=== PATIENT | male | born 1990 | race Hispanic/Latino ===

== ENCOUNTER 2017-03-10 20:37 | Emergency (ER) | payer OTHER ==
[2017-03-10 20:59] VITALS: TEMP 98
[2017-03-10] MEDS ORDERED: Sodium Chloride 0.9% 1,000 ML IV STA (22:18)
[2017-03-10] MEDS ORDERED: Multivitamin (MVI) 10 ML, Thiamine 100 MG, Folic Acid 1 MG in Sodium Chloride 0.9% 1,00... IV ONE (22:18)
--- NOTE | 2017-03-10 22:18 | ED PDOC ---
HPI: Psych/Substance Abuse Time Seen by Provider: 03/10/17 21:41 Chief Complaint (Nursing): Psychiatric Evaluation Chief Complaint (Provider): etoh, depressed History Per: Patient Onset/Duration Of Symptoms: Days Additional History Per: Patient Additional Complaint(s): 27 y/o male history of ETOH abuse presents for crisis eval. Patient states he has been binge drinking x 2 weeks, and that he "doesn't want to do it anymore". PAtient crying, states he has thoughts of hurting himself, but no specific plan. Denies homicidal ideations, drug use, acute medical complaints. Past Medical History Reviewed: Historical Data, Nursing Documentation, Vital Signs Vital Signs: Last Vital Signs Temp 98 F 03/10/17 20:56 Pulse 107 H 03/10/17 20:56 Resp 18 03/10/17 20:56 BP 139/90 03/10/17 20:56 Pulse Ox 98 03/10/17 20:56 - Medical History PMH: No Chronic Diseases - Surgical History Surgical History: No Surg Hx - Family History Family History: States: Unknown Family Hx - Social History Current smoker - smoking cessation education provided: Yes Alcohol: > 2 Drinks/Day Drugs: Cannabis - Home Medications Home Medications: Ambulatory Orders Medication Instructions Recorded chlordiazePOXIDE [Chlordiazepoxide 25 mg PO Q8 #10 cap 01/16/17 HCl] - Allergies Allergies/Adverse Reactions: Allergies Allergy/AdvReac Type Severity Reaction Status Date / Time No Known Allergies Allergy Verified 01/16/17 06:44 Review of Systems ROS Statement: Except As Marked, All Systems Reviewed And Found Negative Psych: Positive for: Depression Physical Exam - Reviewed Nursing Documentation Reviewed: Yes Vital Signs Reviewed: Yes - Physical Exam Appears: Positive for: Well, Non-toxic, No Acute Distress Head Exam: Positive for: ATRAUMATIC, NORMAL INSPECTION, NORMOCEPHALIC Skin: Positive for: Normal Color Eye Exam: Positive for: Normal appearance ENT: Positive for: Normal ENT Inspection Cardiovascular/Chest: Positive for: Regular Rate, Rhythm Respiratory: Positive for: Normal Breath Sounds Gastrointestinal/Abdominal: Positive for: Normal Exam Back: Positive for: Normal Inspection Extremity: Positive for: Normal ROM Neurologic/Psych: Positive for: Alert, Oriented, Other (+AOB) - Laboratory Results Result Diagrams: 03/10/17 22:45 03/10/17 22:45 - ECG O2 Sat by Pulse Oximetry: 98 - Progress ED Course And Treament: labs, IV fluids, IV banana bag, IV ativan, crisis eval Patient evaluated by hoist worker; does not meet criteria for admission at this time. Information for detox center's given by crisis. On re-eval, patient resting comfortably, states he is feeling better. Patient discharged with instructions ot follow up at [facility] provided by crisis. Return to ED for worsening/concerning symptoms. Disposition - Clinical Impression Clinical Impression: Alcohol-induced mood disorder - Patient ED Disposition Is Patient to be Admitted: No Counseled Patient/Family Regarding: Studies Performed, Diagnosis, Need For Followup - Disposition Disposition: Routine/Home Disposition Time: 02:43 Condition: IMPROVED Additional Instructions: Follow up at Detox center. Instructions: Abuse of Alcohol (ED)
[2017-03-10 22:57] LABS: BASO # 0.1 K/uL (0.0-0.2); BASO % 0.5 % (0.0-2.0); HEMATOCRIT 45.1 % (35.0-51.0); LYMPH # 2.2 K/uL (1.0-4.3); LYMPH % 15.3 % (20.0-40.0); MEAN CELL VOLUME 90.9 fl (80.0-94.0); MEAN CORPUSCULAR HEMOGLOBIN 30.8 pg (27.0-31.0); MEAN CORPUSCULAR HGB CONC 33.9 g/dL (33.0-37.0); MONO # 0.5 K/uL (0.0-0.8); MONO % 3.7 % (0.0-10.0); NEUT # 11.6 K/uL (1.8-7.0); NEUT % 80.5 % (50.0-75.0); NRBC % 0.1 % (0.0-0.0); RED CELL DISTRIBUTION WIDTH 12.5 % (11.5-14.5); WHITE BLOOD COUNT 14.4 K/uL (4.8-10.8)
[2017-03-10 23:08] LABS: ALB/GLOB RATIO 1.5 (1.0-2.1); ALCOHOL SERUM 140 mg/dl (0-10); ALKALINE PHOSPHATASE 74 U/L (38-126); ALT/SGPT 24 U/L (21-72); AST/SGOT 43 U/L (17-59); BILIRUBIN,TOTAL 0.9 mg/dl (0.2-1.3); BLOOD UREA NITROGEN 21 mg/dl (9-20); CALCIUM 9.7 mg/dL (8.4-10.2); CARBON DIOXIDE 21 mmol/L (22-30); CHLORIDE 97 mmol/L (98-107); GFR AFRICAN-AMERICAN > 60; GLUCOSE,RANDOM 67 mg/dL (75-110); POTASSIUM 4.4 MMOL/L (3.6-5.0); SODIUM 142 mmol/l (132-148)
[2017-03-11 02:15] LABS: RBC URINE 1 /hpf (0-3); URINE BILIRUBIN NEGATIVE (NEGATIVE); URINE BLOOD NEGATIVE (NEGATIVE); URINE COLOR YELLOW (YELLOW); URINE GLUCOSE (UA) NEG (Normal); URINE KETONE 80 mg/dL (NEGATIVE); URINE LEUKOCYTE ESTERASE NEG Leu/uL (Negative); URINE PROTEIN 100 mg/dL (NEGATIVE); URINE UROBILINOGEN 0.2-1.0 mg/dL (0.2-1.0); WBC URINE 1 /hpf (0-5)
[2017-03-11 02:29] VITALS: BP 133/66; RESP 16
[2017-03-11 03:00] VITALS: PULSE 98
[2017-03-11 03:01] VITALS: O2SAT 98
== END 2017-03-11 03:04 | disposition home or self-care (01) ==
LOC: H.ER 20:37
DX: F10.94 Alcohol use, unspecified with alcohol-induced mood disorder (principal); F17.200 Nicotine dependence, unspecified, uncomplicated; Z00.8 Encounter for other general examination

== ENCOUNTER 2017-04-30 00:03 | Observation (INO) | payer OTHER ==
[2017-04-30 00:17] VITALS: O2SAT 98
[2017-04-30 00:50] LABS: BASO # 0.1 K/uL (0.0-0.2); BASO % 0.7 % (0.0-2.0); EOS # 0.1 K/uL (0.0-0.7); EOS % 0.9 % (0.0-4.0); HEMATOCRIT 46.4 % (35.0-51.0); LYMPH # 2.7 K/uL (1.0-4.3); LYMPH % 37.6 % (20.0-40.0); MEAN CELL VOLUME 91.8 fl (80.0-94.0); MEAN CORPUSCULAR HEMOGLOBIN 30.6 pg (27.0-31.0); MEAN CORPUSCULAR HGB CONC 33.3 g/dL (33.0-37.0); MEAN PLATELET VOLUME 7.8 fl (7.2-11.7); MONO # 0.4 K/uL (0.0-0.8); MONO % 5.3 % (0.0-10.0); NEUT % 55.5 % (50.0-75.0); NRBC % 0.1 % (0.0-0.0); RED CELL DISTRIBUTION WIDTH 13.6 % (11.5-14.5); WHITE BLOOD COUNT 7.1 K/uL (4.8-10.8)
[2017-04-30] MEDS: Sodium Chloride 0.9% 1,000 ML IV SCH ×2 (01:06→05:58)
[2017-04-30 01:08] LABS: ALCOHOL SERUM 282 mg/dl (0-10); BLOOD UREA NITROGEN 17 mg/dl (9-20); CALCIUM 9.1 mg/dL (8.4-10.2); CARBON DIOXIDE 26 mmol/L (22-30); CHLORIDE 104 mmol/L (98-107); GFR AFRICAN-AMERICAN > 60; GLUCOSE,RANDOM 95 mg/dL (75-110); SODIUM 146 mmol/l (132-148)
--- NOTE | 2017-04-30 01:25 | ED PDOC ---
HPI: Psych/Substance Abuse Time Seen by Provider: 04/30/17 00:18 Chief Complaint (Nursing): Psychiatric Evaluation Chief Complaint (Provider): alcohol intoxication ED Caveat: Intoxicated History Per: Patient History/Exam Limitations: intoxication Onset/Duration Of Symptoms: Mins Current Symptoms Are (Timing): Still Present Additional Complaint(s): 27yo male presents to the ED for evaluation of alcohol intoxication. Patient reports drinking more than 2 bottles of alcohol today and states he is feeling suicidal. Hx is limited due to patient's intoxicated state. No further medical or psychiatric complaints. Past Medical History Reviewed: Historical Data, Nursing Documentation, Vital Signs, Unable To Obtain (due to intoxication ) Vital Signs: Last Vital Signs Temp 99 F 04/30/17 00:14 Pulse 120 H 04/30/17 00:14 Resp 18 04/30/17 00:14 BP 142/109 H 04/30/17 00:14 Pulse Ox 98 04/30/17 00:14 - Medical History PMH: Denies: Diabetes, Hepatitis, HIV, HTN, Seizures, Sexually Transmitted Disease - Family History Family History: States: Unknown Family Hx - Home Medications Home Medications: Ambulatory Orders Medication Instructions Recorded chlordiazePOXIDE [Chlordiazepoxide 25 mg PO Q8 #10 cap 01/16/17 HCl] - Allergies Allergies/Adverse Reactions: Allergies Allergy/AdvReac Type Severity Reaction Status Date / Time No Known Allergies Allergy Verified 04/30/17 00:13 Review of Systems ROS Statement: Except As Marked, All Systems Reviewed And Found Negative Psych: Positive for: Suicidal ideation Physical Exam - Reviewed Nursing Documentation Reviewed: Yes Vital Signs Reviewed: Yes - Physical Exam Appears: Positive for: Well (appears intoxicated ), No Acute Distress Head Exam: Positive for: ATRAUMATIC, NORMAL INSPECTION, NORMOCEPHALIC Skin: Positive for: Normal Color, Warm, Dry Eye Exam: Positive for: Normal appearance, EOMI, PERRL ENT: Positive for: Normal ENT Inspection Neck: Positive for: Normal, Painless ROM, Supple Cardiovascular/Chest: Positive for: Regular Rate, Rhythm. Negative for: Murmur , Tachycardia Respiratory: Positive for: Normal Breath Sounds. Negative for: Wheezing, Respiratory Distress Gastrointestinal/Abdominal: Positive for: Normal Exam, Soft. Negative for: Tenderness Back: Positive for: Normal Inspection Extremity: Positive for: Normal ROM. Negative for: Deformity, Swelling Neurologic/Psych: Positive for: Alert - Laboratory Results Result Diagrams: 04/30/17 00:27 04/30/17 00:27 - ECG O2 Sat by Pulse Oximetry: 98 Pulse Ox Interpretation: Normal (RA) Medical Decision Making Medical Decision Makin: Impression: alcohol intoxication w/ SI Plan: EKG Labs crisis eval IVF ED obs reassess Scribe Attestation: Documented by Gisella Ellington acting as a scribe for Pro Yuen MD. Provider Scribe Attestation: All medical record entries made by the Scribe were at my direction and personally dictated by me. I have reviewed the chart and agree that the record accurately reflects my personal performance of the history, physical exam, medical decision making, and the department course for this patient. I have also personally directed, reviewed, and agree with the discharge instructions and disposition. ED OBSERVATION Date of observation admission: 04/30/17 Time of observation admission: 00:22 - Observation admission statement Patient is being placed in observation because:: alcohol intoxication and SI - Goals of Observation Goals of observation are:: pending sobriety and crisis eval - Progress Note Progress Note: 04/30/17 06:30 Pt. awake and alert, cleared by psych- states he will seek outpatient detox. Disposition - Clinical Impression Clinical Impression: Alcohol abuse - Patient ED Disposition Is Patient to be Admitted: No - Disposition Disposition: Routine/Home Disposition Time: 06:31 Condition: STABLE
[2017-04-30 06:00] VITALS: BP 115/70; PULSE 89; RESP 23; TEMP 98.7
--- NOTE | 2017-04-30 08:02 | CARD ---
APPROVED REPORT EKG Measurement Heart [id number] ID [id number] <Conclusion> Normal sinus rhythm Normal ECG
== END 2017-04-30 06:31 | disposition home or self-care (01) ==
LOC: H.ER 00:03 → H.EROBSV 00:22
PROVIDERS: ADMIT Emergency Medicine; ATTEND Emergency Medicine
DX: F10.129 Alcohol abuse with intoxication, unspecified (principal); R45.851 Suicidal ideations; Y90.8 Blood alcohol level of 240 mg/100 ml or more